=== PATIENT | male | born 1965 | race Two or more races ===

== ENCOUNTER 2021-11-29 16:54 | Emergency (ER) | payer MEDICAID ==
[~2021-11-29] VITALS: Ht 172.7 cm; Wt 74.8 kg
[2021-11-29 16:59] VITALS: BP 120/88
[2021-11-29] MEDS ORDERED: ACETAMINOPHEN ES 500 MG TABLET PO ONE (17:30)
[2021-11-29] MEDS ORDERED: ACETAMINOPHEN ES 500 MG TABLET ONE ×2 (17:33→17:35)
--- NOTE | 2021-11-29 18:00 | NUR ---
No obvious distress. Ambulatory Gait even/steady
[2021-11-29] MEDS ORDERED: CYCL5TAB PO (18:23)
[2021-11-29] MEDS ORDERED: IBUP-1957 PO (18:23)
--- NOTE | 2021-11-29 18:26 | NUR ---
Patient discharged to home in stable condition. Written and verbal after care instructions given. Patient verbalizes understanding of instruction.
== END 2021-11-29 18:26 | disposition home or self-care (01) ==
LOC: ER 17:51
DX: R51.9 Headache, unspecified (principal); M54.2 Cervicalgia; Z79.899 Other long term (current) drug therapy; V49.9XXA Car occupant (driver) (passenger) injured in unspecified traffic accident, initial encounter; Y93.89 Activity, other specified; Y92.89 Other specified places as the place of occurrence of the external cause; Y99.8 Other external cause status
CPT/HCPCS: 70450-TC; 72125-TC